=== PATIENT | female | born 2005 | race Two or more races ===

== ENCOUNTER 2025-01-10 22:17 | Emergency (ER) | payer OTHER ==
[2025-01-10 22:26] VITALS: BP 129/76; PULSE 101; RESP 18; TEMP 97.7; BMI 28.0
[2025-01-10 23:49] LABS: HEMATOCRIT 40.9 % (34.1-44.9); HEMOGLOBIN 12.9 g/dL (11.2-15.7); MCHC 31.5 g/dl (32.2-35.5); MEAN CELL VOLUME 80.8 fl (79.4-94.8); MEAN PLT VOLUME 10.7 fl (9.4-12.3); PLATELET COUNT 284 x10^3/uL (182-369); RDW 13.5 % (12.0-16.2)
[2025-01-10] MEDS ORDERED: ACETAMINOPHEN INJECTION 100 ML ONE (23:51)
[2025-01-10] MEDS ORDERED: METOCLOPRAMIDE HCL INJECTION 10 MG/2 ML VIAL ONE (23:51)
[2025-01-11] MEDS: ACETAMINOPHEN 1000 MG/100 ML BAG IVPB ONE (00:14)
[2025-01-11] MEDS: SODIUM CHLORIDE 1,000 ML IV STA (00:21)
[2025-01-11] MEDS: METOCLOPRAMIDE HCL INJECTION 10 MG/2 ML VIAL IVPUSH ONE (00:21)
[2025-01-11 00:26] LABS: CHLORIDE 104 mmol/L (98-107); POTASSIUM 5.2 mmol/L (3.5-5.1); SODIUM 136 mmol/L (136-145)
[2025-01-11 00:28] LABS: CALCIUM 10.1 mg/dL (8.5-10.1)
[2025-01-11 00:29] LABS: ALBUMIN 4.2 g/dl (3.4-5.0); ANION GAP 5 mmol/L (4-13); CO2 27 mmol/L (21-32); GLUCOSE,RANDOM 98 mg/dL (74-106)
[2025-01-11 00:32] LABS: CREATININE 0.7 mg/dL (0.55-1.3); SGOT/AST 30 U/L (15-37); SGPT/ALT 17 U/L (13-61)
[2025-01-11 00:33] LABS: BILIRUBIN,TOTAL 0.6 mg/dL (0.2-1)
[2025-01-11 00:34] LABS: TOT PROT 8.3 g/dl (6.4-8.2)
[2025-01-11 00:35] LABS: ALK PHOS 78 U/L (45-117)
== END 2025-01-11 02:00 | disposition home or self-care (01) ==
LOC: JER 22:17
PROC: 3E033NZ Introduction of Analgesics, Hypnotics, Sedatives into Peripheral Vein, Percutaneous Approach (ICD-10-PCS; principal; 2025-01-10)
PROC: 3E033GC Introduction of Other Therapeutic Substance into Peripheral Vein, Percutaneous Approach (ICD-10-PCS; 2025-01-10)
PROC: 3E0337Z Introduction of Electrolytic and Water Balance Substance into Peripheral Vein, Percutaneous Approach (ICD-10-PCS; 2025-01-10)
DX: R11.0 Nausea (principal); R51.9 Headache, unspecified; R30.0 Dysuria
CPT/HCPCS: 0241U-QW; 36415; 80053; 84702; 85027; 99284-25; J0131